=== PATIENT | male | born 1985 | race American Indian/Alaskan Native ===

== ENCOUNTER 2018-08-28 11:25 | Emergency (ER) | payer OTHER ==
[2018-08-28] MEDS ORDERED: NACL 0.9% IR ONE (11:39)
--- NOTE | 2018-08-28 11:39 | Event Note ---
ED Screening Note ED Screening Note: co finger lac- happened yesterday open mangled finger tip tdap within 1 year no blood pmh none This initial assessment/diagnostic orders/clinical plan/treatment(s) is/are subject to change based on patients health status, clinical progression and re- assessment by fellow clinical providers in the ED. Further treatment and workup at subsequent clinical providers discretion. Patient/guardian urged not to elope from the ED as their condition may be serious if not clinically assessed and managed. Initial orders include: xray wound care ancef IM
[2018-08-28 11:48] VITALS: BP 117/77
[2018-08-28] MEDS ORDERED: HYDROGEN PEROXIDE ONE (12:18)
--- NOTE | 2018-08-28 12:54 | XRay Report ---
RIGHT INDEX FINGER 3 VIEWS INDICATION / CLINICAL INFORMATION: Open, mangled finger tip COMPARISON: None available. FINDINGS: BONES / JOINT(S): There is an acute, comminuted fracture involving the terminal tuft of the distal ph alanx of the index finger. There is mild displacement and distraction of the fracture fragments. Ther e is old healed fracture deformity of the distal fifth metacarpal. SOFT TISSUES: There is soft tissue irregularity involving the tip of the finger consistent with an op en fracture. I do not identify a radiopaque foreign body. ADDITIONAL FINDINGS: None. IMPRESSION: Compound, comminuted fracture of the terminal tuft of the distal phalanx of the index fin leon. Signer Name: Trevor Fowler MD Signed: 08/28/2018 12:49 PM Workstation Name: [id number]
--- NOTE | 2018-08-28 13:04 | Emergency Department Report ---
ED Laceration HPI - HPI Chief Complaint: Wound/Laceration Stated Complaint: FINGER LAC Time Seen by Provider: 08/28/18 11:34 Location: Upper Extremity Severity: mild Tetanus Status: Up to Date Laceration Symptoms: Yes Pain, No Foreign Body Sensation, No Numbness, No Weakness Other History: This is a 32-year-old male presents ED complaining laceration to left index finger that happened yesterday afternoon while he was fully folding chairs when one of the chairs accidentally caught his finger ED Review of Systems ROS: Stated complaint: FINGER LAC Other details as noted in HPI Comment: All other systems reviewed and negative ED Past Medical Hx - Past Medical History Previous Medical History?: No - Surgical History Past Surgical History?: No - Social History Smoking Status: Never Smoker Substance Use Type: None - Medications Home Medications: Home Medications Medication Instructions Recorded Confirmed Last Taken Type Acetaminophen/Codeine [Tylenol 1 tab PO Q6H PRN #10 tab 08/28/18 Unknown Rx /Codeine # 3 tab] Ibuprofen [Motrin] 800 mg PO Q8HR #30 tablet 08/28/18 Unknown Rx cephALEXin [Keflex] 500 mg PO Q12HR #14 cap 08/28/18 Unknown Rx Laceration Physical Exam - Exam General: Vital signs noted. No distress. Alert and acting appropriately. Laceration Location: Upper Extremity Laceration Exam: Yes Normal Distal CMS, No Foreign Body, No Exposed Tendon, Vessel, or Nerve, No Tendon Injury ED Course Vital Signs 08/28/18 11:46 Temperature 98.4 F Pulse Rate 88 Respiratory 18 Rate Blood Pressure 117/77 [Left] O2 Sat by Pulse 98 Oximetry ED Medical Decision Making - Medical Decision Making 32-year-old male presents with fractured index fingertip. Patient's nailbed is intact. X-ray shows fracture see reported above. Patient is up-to-date on his tetanus Discussed with patient his x-ray findings. patient's finger was cleaned with Betadine. Discussed the patient to follow with orthopedic doctor within the week. Discussed wound check in 3-5 days. Discussed acute wound care Critical care attestation.: If time is entered above; I have spent that time in minutes in the direct care of this critically ill patient, excluding procedure time. ED Disposition Clinical Impression: Fracture, finger, distal phalanx, open Disposition: [id number] TO HOME OR SELFCARE Is pt being admited?: No Does the pt Need Aspirin: No Condition: Stable Instructions: Laceration (ED), Finger Fracture (ED), Acute Wound Care (ED) Additional Instructions: Make sure to follow up with the primary care physician as discussed. She is to follow-up with her orthopedic doctor for management of your finger fracture. Follow-up with pcp 3-5 days for wound check Take all your medications as you've been prescribed. If you have any worsening symptoms or develop new symptoms please return to ED immediately. Prescriptions: cephALEXin [Keflex] 500 mg PO Q12HR #14 cap Ibuprofen [Motrin] 800 mg PO Q8HR #30 tablet Acetaminophen/Codeine [Tylenol /Codeine # 3 tab] 1 tab PO Q6H PRN #10 tab PRN Reason: Pain , Severe (7-10) Referrals: CARMELO IZAGUIRRE MD [Primary Care Provider] - 3-5 Days MARLON HIGHTOWER MD [Staff Physician] - 3-5 Days Forms: Accompanied Note, Work/School Release Form(ED) Time of Disposition: 13:38
[2018-08-28] MEDS ORDERED: TORADOL IV ONE (13:37)
== END 2018-08-28 13:59 | disposition home or self-care (01) ==
LOC: ED 11:25
DX: S62.631A Displaced fracture of distal phalanx of left index finger, initial encounter for closed fracture (principal); W22.03XA Walked into furniture, initial encounter; Y93.89 Activity, other specified; Y92.89 Other specified places as the place of occurrence of the external cause; Y99.8 Other external cause status